=== PATIENT | male | born 1965 | race Caucasian/White ===

== ENCOUNTER 2024-12-02 09:06 | Emergency (ER) | payer MEDICAID, OTHER ==
[~2024-12-02] VITALS: Ht 175.3 cm; Wt 86.2 kg
[2024-12-02 09:17] VITALS: BP 154/89; TEMP 98.4
[2024-12-02] MEDS ORDERED: DIPH25CA83 PO (10:03)
[2024-12-02] MEDS ORDERED: FAMO-131 PO (10:03)
[2024-12-02] MEDS ORDERED: PRED20TA PO (10:03)
[2024-12-02 10:23] VITALS: O2SAT 97
== END 2024-12-02 10:24 | disposition home or self-care (01) ==
LOC: ER 09:19
DX: T63.441A Toxic effect of venom of bees, accidental (unintentional), initial encounter (principal); R09.89 Other specified symptoms and signs involving the circulatory and respiratory systems; Z79.52 Long term (current) use of systemic steroids; Y92.89 Other specified places as the place of occurrence of the external cause